=== PATIENT | male | born 1965 | race Caucasian/White ===

== ENCOUNTER → 2019-11-18 | Outpatient (CLI) | payer OTHER ==
[~2019-11-18] MED LIST: ADVIL200 M1 PO; AMLODIPINE BESY10 MG PO; MEDROLDOSEPACK PO; TRAMADOL 50 MG50 MG PO
--- NOTE | ~2019-11-18 | PAINCON ---
[address] [address] PAIN MANAGEMENT CONSULTATION Name: BIBIANAROSSI S Room: [facility]#: [id number] Admission: 11/18/19 Attend Phys: Ricardo Fitzpatrick MD Discharge: Date of : 63 Report #: [id number] THIS REPORT FOR: //name// cc: Cecily Acosta MD, Ghazal A. MD ~ THIS REPORT FOR: //name// CC: Cecily Fitzpatrick DATE OF SERVICE: 11/18/2019 CHIEF COMPLAINT: Lumbar pain. HISTORY: The patient is a 54-year-old gentleman who has been referred to the pain clinic because of worsening pain. He has noticed over the last few weeks, increasing pain. He is doing more physical activity. He has been having back spasms. He has a history of back surgery about 10 years ago. He has used nonsteroidal anti-inflammatory medication such as ibuprofen, Tylenol and Aleve. Notes his pain can worsen as the day goes on. He has been experiencing spasms. States that his back sometimes locks up. Pain radiates down into his legs bilaterally into the level of his thigh. By the end of the day, the pain can be quite intolerable. He has tried tizanidine as a muscle relaxant. Notes some things that relieve the pain are cold, rest and stretching. He denies any new trauma. He describes it as continuous pain in his back. Notes that there are periodic times when his back locks up. Described it as sharp. PAST MEDICAL HISTORY: Hypertension. PAST SURGICAL HISTORY: Back surgery in 05/2010, neck surgery in 07/2015, hernia repair in 02/2017, cholecystectomy in 12/2005. SOCIAL HISTORY: He is a supervisor [employer]. REVIEW OF SYSTEMS: Generally good health, recent weight change, fatigue, weakness, headaches, hearing loss, swelling of ankles, frequent urination, joint pain, joint stiffness, weakness of muscles, muscle pain, cramps, back pain, paralysis. IMAGING STUDIES: X-ray of the lumbar spine dated 10/28/2019. Indication back spasm 6 months, history of diskectomy. FINDINGS: Disk space narrowing, most prominent at L5-S1 with endplate sclerosis. Slight posterior listhesis L2 on L3. Facet joint degenerative changes at multiple levels. No evidence of acute fracture or bone destruction. Soft [place] [address] PAIN MANAGEMENT CONSULTATION Name: ROSSI MCCARTY Room: [facility]#: [id number] Admission: 11/18/19 Attend Phys: Ricardo Fitzpatrick MD Discharge: Date of : 63 Report #: [id number] IMPRESSION: 1. Multilevel degenerative disk and facet arthrosis. 2. Hypertension. PAIN CLINIC ASSESSMENT/PQRS: 1. History of osteoarthritic changes in his low back area. The patient is not being treated for rheumatoid arthritis. 2. Height 6 feet 0, weight 201 pounds, BMI is 27. 3. Vital signs: Blood pressure 149/93, heart rate 77, respiratory rate 16, room air saturation 98%, temperature 98.5. 4. Pain intensity 5/10. 5. Fall history: The patient has not fallen in the last 3 months. 6. Blood thinner. The patient is not on a blood thinning medication. 7. Hypertension. The patient is being treated for hypertension. 8. Opioids greater than 6 weeks. The patient is not on a regular opioid regimen. 9. Risk assessment tool, low for opioid use. 10. Functional assessment tool reviewed. 11. Recreational drug use. The patient denies. 12. Tobacco: The patient denies. 13. Alcohol. The patient denies frequent alcohol use. PHYSICAL EXAMINATION: GENERAL: The patient is a well-developed, well-nourished white male. Appears his stated age. He is alert and oriented x 3. His affect is appropriate. Speech is fluent. He is wearing a mask. HEENT: Normocephalic, atraumatic. Extraocular eye muscles intact. Sclerae nonicteric. Mucous membranes are moist. NECK: Without adenopathy or JVD. The patient has pain and discomfort in the lower portion of his back. EXTREMITIES: Upper extremity muscle strength judged to be 5/5 for the major muscle groups in the upper extremity. Deep tendon reflexes are trace at the biceps bilaterally. HEART: Regular rate. ABDOMEN: Nontender. Anterior and posterior spring tests are negative. MUSCULOSKELETAL: The patient without significant scoliosis, kyphosis or lordosis. The patient is able to stand on his toes and heels. Left and right lateral bending were not problematic. Right rotation cause some increased discomfort in the back. The patient has pain across the lower portion of his back and notes that the pain increases with activity, decreases when he rests. The patient has pain and discomfort in the lower portion of his back with pain in the buttocks and radiating down into the posterior portion in the L5-S1 dermatomal distribution of his legs on both sides. [facility] [address] [place] [address] PAIN MANAGEMENT CONSULTATION Name: ROSSI MCCARTY Room: [facility] Cuca#: [id number] Admission: 11/18/19 Attend Phys: Ricardo Fitzpatrick MD Discharge: Date of : 63 Report #: [id number] IMPRESSION: 1. Low back pain. 2. History of diskectomy 10 years ago. 3. Hypertension. RECOMMENDATIONS: We discussed treatment options with the patient. Risks and benefits of an epidural steroid injection were discussed. A model was used to indicate the area of probable pathology. The patient will try a conservative approach at this juncture. He will be provided a Medrol Dosepak, which he will take in the next week. Should his pain continue to be problematic, we will consider the possibility of an epidural steroid injection. He will also use tramadol 50 mg one p.o. t.i.d. We would like to thank you for letting us to participate in his care. Hopefully, he continues to improve. By: [id number] Fitzpatrick MD /[place]
== END ==
LOC: M.PC 07:50
PROVIDERS: ATTEND Anesthesiology Pain Medicine
DX: M47.816 Spondylosis without myelopathy or radiculopathy, lumbar region (principal); I10 Essential (primary) hypertension; Z87.39 Personal history of other diseases of the musculoskeletal system and connective tissue

== ENCOUNTER → 2019-12-04 | Outpatient (CLI) | payer OTHER ==
--- NOTE | 2019-12-18 15:59 | PAINCON ---
[address] [address] PAIN MANAGEMENT CONSULTATION Name: BIBIANAROSSI S Room: [facility]#: [id number] Admission: 12/04/19 Attend Phys: Ricardo Fitzpatrick MD Discharge: Date of : 63 Report #: [id number] THIS REPORT FOR: //name// cc: Cecily Acosta MD, Ghazal A. MD ~ THIS REPORT FOR: //name// CC: Cecily Fitzpatrick DATE OF SERVICE: 12/04/2019 CHIEF COMPLAINT: Low back pain. HISTORY: The patient is a 54-year-old gentleman who has been seen in the pain clinic because of lumbar radiculopathy. He was experiencing pain, which has been radiating down his legs. He was provided a Medrol Dosepak at the last visit. He noticed some improvement with that medication. He continues to have pain down his legs, right side greater than left. He has continued to have muscle spasms. He rates his pain as a 6/10. He has been using tramadol to help combat with the pain. He feels that the pain is worse with activity. He has used stretching, rest, and massage as well as medications to help decrease his discomfort. He had back surgery about 10 years ago. He would like to proceed with an epidural steroid injection today given that his pain continues to be problematic despite oral steroids. CURRENT MEDICATIONS: Tramadol 50 mg t.i.d. ALLERGIES: LOSARTAN. PAIN CLINIC ASSESSMENT AND PQRS: 1. History of osteoarthritic changes in the low back area. The patient is not being treated for rheumatoid arthritis. 2. Height 6 feet 0, weight 189 pounds, BMI is 26.8. 3. Vital signs: Blood pressure 138/79, heart rate 83, respiratory rate 16, room air saturation 97%, temperature 98.7. 4. Pain intensity 6/10. 5. Fall history: The patient has not fallen in the last 3 months. 6. Blood thinner. The patient is not on a blood thinning medication. 7. Hypertension. The patient is being treated for hypertension. 8. Opioids greater than 6 weeks. The patient is not on a regular opioid regimen. 9. Risk assessment tool, low for opioid use. 10. Functional assessment tool reviewed. 11. Recreational drug use. The patient denies. 12. Tobacco: [place] [address] PAIN MANAGEMENT CONSULTATION Name: ROSSI MCCARTY Room: [facility]#: [id number] Admission: 12/04/19 Attend Phys: Ricardo Fitzpatrick MD Discharge: Date of : 63 Report #: [id number] 13. Alcohol: The patient denies frequent use of alcoholic beverages. PHYSICAL EXAMINATION: GENERAL: The patient is a well-developed, well-nourished white male. Appears his stated age. He is alert and oriented x 3. His affect is appropriate. Speech is fluent. HEENT: Normocephalic, atraumatic. Extraocular eye muscles intact. Sclerae nonicteric. Mucous membranes are moist. The patient is wearing a mask. NECK: Without adenopathy or JVD. The patient has pain and discomfort in the lower portion of his back. EXTREMITIES: Upper extremity muscle strength judged to be 5/5 for the major muscle groups in the upper extremity. Deep tendon reflexes are trace at the biceps bilaterally. HEART: Regular rate. ABDOMEN: Nontender. Anterior and posterior spring tests were negative. MUSCULOSKELETAL: The patient without significant scoliosis, kyphosis or lordosis. The patient has pain that radiates down into his right back and into his leg. Notes increased pain with activity and decreased discomfort with rest. The patient noted pain and discomfort in the L5-S1 dermatomal distribution in both legs. IMPRESSION: 1. Low back pain. 2. History of diskectomy 10 years ago. 3. Hypertension. RECOMMENDATIONS: We discussed treatment options with the patient. Risks and benefits of an epidural steroid injection were discussed. Possible complications of the procedure were reviewed. They could include but are not limited to infection, worsening of pain, no improvement in pain, nerve damage, spinal headache and the patient elects to proceed. We discussed the problems with Covid-19. If the patient were to become infected, he may have a more difficult time given that steroids decrease one's immune system. We discussed this and the patient is aware of the risks and elects to proceed. PROCEDURE NOTE: The patient was taken to the procedure area. He was then assisted in getting on the examination table. A pillow was placed under his abdomen to bolster and improve positioning. His back was sterilely prepped with a Betadine solution. At the L5-S1 area, 0.25% bupivacaine was infiltrated. A 17-gauge Tuohy with loss of resistance technique was used to gain access to the epidural space. There was no CSF, heme, or paresthesia. Total of 80 mg Depo-Medrol, 40 mg triamcinolone and 2 mL of 0.25% bupivacaine was injected. The patient tolerated the procedure well. A total of 11 seconds fluoroscopy time was used. The patient remained in the pain clinic for an appropriate amount of time. He will follow up in the future as needed. [address] [place] [address] PAIN MANAGEMENT CONSULTATION Name: ROSSI MCCARTY Room: [facility]#: [id number] Admission: 12/04/19 Attend Phys: Ricardo Fitzpatrick MD Discharge: Date of : 63 Report #: [id number] We would like to thank you for letting us participate in his care. We hope he continues to improve. <ELECTRONICALLY SIGNED> By: Ricardo Fitzpatrick MD 12/18/19 [id number]. Bharat Fitzpatrick MD /nt
== END | disposition home or self-care (01) ==
LOC: M.PC 04:50
PROVIDERS: ATTEND Anesthesiology Pain Medicine
DX: M54.16 Radiculopathy, lumbar region (principal); G89.29 Other chronic pain; I10 Essential (primary) hypertension; Z90.49 Acquired absence of other specified parts of digestive tract; Z98.890 Other specified postprocedural states; Z79.899 Other long term (current) drug therapy